=== PATIENT | female | born 1985 | race Caucasian/White ===

== ENCOUNTER → 2016-12-15 | Outpatient (CLI) | payer BC ==
[2014-03-25 08:50] VITALS: BP 153/99
[~2016-12-15] MED LIST: ALPR0.5T PO; DEXT5TAB27 PO; METO10TA81 PO; METR500T8 PO; OMEP20CA5 PO; VALA500T5 PO; ZOLP10TA PO
== END | disposition home or self-care (01) ==
LOC: LAB 11:21
PROVIDERS: ATTEND Emergency Medicine
DX: Z34.90 Encounter for supervision of normal pregnancy, unspecified, unspecified trimester (principal)
CPT/HCPCS: 36415; 84702

== ENCOUNTER → 2016-12-17 | Outpatient (CLI) | payer BC ==
[2014-03-25 08:50] VITALS: BP 153/99
== END | disposition home or self-care (01) ==
LOC: LAB 11:37
PROVIDERS: ATTEND Emergency Medicine
DX: Z32.01 Encounter for pregnancy test, result positive (principal)
CPT/HCPCS: 36415; 84702

== ENCOUNTER 2017-05-22 17:30 | Inpatient (IN) | payer BC ==
[~2017-05-22] VITALS: Ht 157.5 cm; Wt 76.7 kg
[2017-05-22] MEDS ORDERED: IV NORMAL SALINE 1000ML BAG 1,000 ML IV ONE ×4 (17:45→23:15)
[2017-05-22] MEDS ORDERED: ONDANSETRON PF 4 MG/2 ML VIAL. IV ONE (17:45)
[2017-05-22 17:54] LABS: BILIRUBIN,URINE NEGATIVE (NEG); GLUCOSE,URINE NEGATIVE (NEG); NITRITE,URINE NEGATIVE (NEG); PROTEIN,URINE NEGATIVE (NEG-TRACE)
[2017-05-22 17:59] LABS: BASO # 0.1 x10^3/uL (0.0-0.2); BASO % 1 % (0-3); EOS % 1 % (0-3); HEMOGLOBIN 11.8 g/dL (12.0-15.5); LYMPH % 7 % (24-48); MEAN CORPUSCULAR HEMOGLOBIN 31 pg (25-35); MEAN CORPUSCULAR HGB CONC 34 g/dL (31-37); MEAN CORPUSCULAR VOLUME 91 fL (79-100); MONO % 4 % (0-9); NEUT % 88 % (31-73); PLATELET COUNT 231 x10^3/uL (140-400); RED BLOOD COUNT 3.86 x10^6/uL (3.50-5.40); RED CELL DISTRIBUTION WIDTH 12.7 % (11.5-14.5); WHITE BLOOD COUNT 13.1 x10^3/uL (4.0-11.0)
[2017-05-22] MEDS ORDERED: HYDROmorphone 2 MG/ML VIAL IV ONE ×2 (18:00→18:45)
[2017-05-22 18:01] LABS: BACTERIA,URINE MANY /HPF (0-FEW); RBC,URINE 0 /HPF (0-2); SQUAMOUS EPITHELIAL CELL,UR MANY /LPF; WBC,URINE >40 /HPF (0-4)
[2017-05-22 18:13] LABS: CALCIUM 8.8 mg/dL (8.5-10.1); CREATININE 0.5 mg/dL (0.6-1.0); GFR 141.2; POTASSIUM 3.6 mmol/L (3.5-5.1)
[2017-05-22] MEDS ORDERED: FAMOTIDINE 20 MG/2 ML VIAL IVP ONE (18:15)
[2017-05-22 18:20] LABS: ALBUMIN 2.9 g/dL (3.4-5.0); ALBUMIN/GLOBULIN RATIO 0.8 (1.0-1.7); TOTAL BILIRUBIN 0.4 mg/dL (0.2-1.0); TOTAL PROTEIN 6.7 g/dL (6.4-8.2)
[2017-05-22 18:30] LABS: PLT ESTIMATE ADEQUATE (ADEQUATE)
--- NOTE | 2017-05-22 19:01 | RAD ---
Ultrasound pelvis INDICATION: Flank pain. TECHNIQUE: Grayscale, color Doppler and spectral waveform ultrasound images of the pelvis. COMPARISON: None FINDINGS: Single intrauterine noted with cardiac activity at the rate of 144 bpm. The biparietal diameter measures 7.5 cm corresponding to estimated gestation age of 30 weeks 1 day. The head circumference measures 27.57 cm corresponding to estimated gestation age of 30 weeks 1 day. Spine is visualized. Four-chamber heart noted. Stomach is visualized. The abdominal circumference measures 23.76 cm corresponding to estimated gestational age of 28 weeks 0 days. Kidneys visualized. Three-vessel cord noted. Bladder is visualized. Femoral length measures 5.77 cm corresponding to estimated gestation age of 30 weeks 1 day. Placenta is posterior. LUIS ALBERTO within normal limits. Presentation is cephalic the time of scanning. Estimated weight of 1340 g. IMPRESSION: Single viable intrauterine with estimated gestation age of 29 weeks 4 days with estimated due date of 08/03/2017. Electronically signed by: Cresencio Parisi DO (05/22/2017 6:58 PM) [facility]
[2017-05-22] MEDS ORDERED: PROMETHAZINE 12.5 MG in IV DEXTROSE 5% 50 ML IV ONE (19:15)
--- NOTE | 2017-05-22 19:51 | PHYS DOC ---
Past Medical History Past Medical History: Hypertension Past Surgical History: Alcohol Use: None Drug Use: None Adult General Chief Complaint Chief Complaint: FLANK PAIN HPI HPI Patient is a 32 year old female with history of hypertension who presents today with nausea vomiting and diarrhea that began today. Patient is also complaining of moderate bilateral flank pain. She is currently 29 weeks 2 para 1. Denies any vaginal bleeding. Denies any hematemesis or melena. Patient denies any fever. Review of Systems Review of Systems Constitutional: Denies fever or chills [] Eyes: Denies change in visual acuity, redness, or eye pain [] HENT: Denies nasal congestion or sore throat [] Respiratory: Denies cough or shortness of breath [] Cardiovascular: No additional information not addressed in HPI [] GI: Reports nausea, vomiting, and diarrhea. Denies abdominal pain, : Denies dysuria or hematuria [] Musculoskeletal: Denies back pain or joint pain [] Integument: Denies rash or skin lesions [] Neurologic: Denies headache, focal weakness or sensory changes [] All other systems were reviewed and found to be within normal limits, except as documented in this note. Current Medications Current Medications Current Medications Medications (Trade) Dose Ordered Sig/Rashid Start Time Stop Time Status Last Admin Dose Admin Acetaminophen (Tylenol) 1,000 mg 1X ONCE 05/22/17 20:15 05/22/17 20:18 DC 05/22/17 20:24 1,000 MG Ceftriaxone Sodium 50 ml @ 100 mls/hr 1X ONCE 05/22/17 18:45 05/22/17 19:14 DC 05/22/17 18:44 100 MLS/HR Famotidine (Pepcid Vial) 20 mg 1X ONCE 05/22/17 18:15 05/22/17 18:16 DC 05/22/17 18:35 20 MG Hydromorphone HCl (Dilaudid) 1 mg Q3HRS PRN 05/22/17 20:15 05/22/17 20:24 1 MG Ondansetron HCl (Zofran) 4 mg 1X ONCE 05/22/17 17:45 05/22/17 17:46 DC 05/22/17 17:59 4 MG Promethazine HCl 12.5 mg/Dextrose 50.5 ml @ 101 mls/hr 1X ONCE 05/22/17 19:15 05/22/17 19:44 DC 05/22/17 19:21 101 MLS/HR Sodium Chloride 1,000 ml @ 1,000 mls/hr 1X ONCE 05/22/17 19:15 05/22/17 20:14 DC 05/22/17 19:26 1,000 MLS/HR Allergies Allergies Allergies Coded Allergies Type Severity Reaction Last Updated Verified No Known Drug Allergies 03/25/14 No Physical Exam Physical Exam Constitutional: Well developed, well nourished, no acute distress, non-toxic appearance. [] HENT: Normocephalic, atraumatic, bilateral external ears normal, oropharynx moist, no oral exudates, nose normal. [] Eyes: PERRLA, EOMI, conjunctiva normal, no discharge. [] Neck: Normal range of motion, no tenderness, supple, no stridor. [] Cardiovascular:Heart rate regular rhythm, no murmur [] Lungs & Thorax: Bilateral breath sounds clear to auscultation [] Abdomen: Gravid abdomen. Bowel sounds normal, soft, no tenderness, no masses, no pulsatile masses. [] Skin: Warm, dry, no erythema, no rash. [] Back: No tenderness, moderate bilateral CVA tenderness. [] Extremities: No tenderness, no cyanosis, no clubbing, ROM intact, no edema. [] Neurologic: Alert and oriented X 3, normal motor function, normal sensory function, no focal deficits noted. [] Psychologic: Affect normal, judgement normal, mood normal. [] Current Patient Data Vital Signs Vital Signs Date Time Temp Pulse Resp B/P (MAP) Pulse Ox O2 Delivery O2 Flow Rate FiO2 05/22/17 20:48 88 18 112/59 (76) 98 Room Air 05/22/17 17:30 98.1 98.1 Lab Values Laboratory Tests Test 05/22/17 17:30 05/22/17 17:50 Urine Collection Type Unknown Urine Color [place] Urine Clarity Clear Urine pH 6.0 Urine Specific [place] 1.025 Urine Protein Negative mg/dL (NEG-TRACE) Urine Glucose (UA) Negative mg/dL (NEG) Urine Ketones (Stick) Negative mg/dL (NEG) Urine Blood Negative (NEG) Urine Nitrite Negative (NEG) Urine Bilirubin Negative (NEG) Urine Urobilinogen Dipstick 1.0 mg/dL (0.2 mg/dL) Urine Leukocyte Esterase Moderate (NEG) Urine RBC 0 /HPF (0-2) Urine WBC >40 /HPF (0-4) Urine Squamous Epithelial Cells Many /LPF Urine Bacteria Many /HPF (0-FEW) Urine Mucus Marked /LPF White Blood Count 13.1 x10^3/uL (4.0-11.0) H Red Blood Count 3.86 x10^6/uL (3.50-5.40) Hemoglobin 11.8 g/dL (12.0-15.5) L Hematocrit 35.0 % (36.0-47.0) L Mean Corpuscular Volume 91 fL (79-100) Mean Corpuscular Hemoglobin 31 pg (25-35) Mean Corpuscular Hemoglobin Concent 34 g/dL (31-37) Red Cell Distribution Width 12.7 % (11.5-14.5) Platelet Count 231 x10^3/uL (140-400) Neutrophils (%) (Auto) 88 % (31-73) H Lymphocytes (%) (Auto) 7 % (24-48) L Monocytes (%) (Auto) 4 % (0-9) Eosinophils (%) (Auto) 1 % (0-3) Basophils (%) (Auto) 1 % (0-3) Neutrophils # (Auto) 11.5 x10^3uL (1.8-7.7) H Lymphocytes # (Auto) 1.0 x10^3/uL (1.0-4.8) Monocytes # (Auto) 0.5 x10^3/uL (0.0-1.1) Eosinophils # (Auto) 0.1 x10^3/uL (0.0-0.7) Basophils # (Auto) 0.1 x10^3/uL (0.0-0.2) Segmented Neutrophils % 87 % (35-66) H Band Neutrophils % 5 % (0-9) Lymphocytes % 4 % (24-48) L Monocytes % 4 % (0-10) Platelet Estimate Adequate (ADEQUATE) Maternal Serum HCG Beta Subunit 15670 mIU/mL (0-5) H Sodium Level 136 mmol/L (136-145) Potassium Level 3.6 mmol/L (3.5-5.1) Chloride Level 103 mmol/L (98-107) Carbon Dioxide Level 21 mmol/L (21-32) Anion Gap 12 (6-14) Blood Urea Nitrogen 12 mg/dL (7-20) Creatinine 0.5 mg/dL (0.6-1.0) L Estimated GFR (Cockcroft-Gault) 141.2 BUN/Creatinine Ratio 24 (6-20) H Glucose Level 116 mg/dL (70-99) H Calcium Level 8.8 mg/dL (8.5-10.1) Total Bilirubin 0.4 mg/dL (0.2-1.0) Aspartate Amino Transferase (AST) 20 U/L (15-37) Alanine Aminotransferase (ALT) 31 U/L (14-59) Alkaline Phosphatase 117 U/L (46-116) H Total Protein 6.7 g/dL (6.4-8.2) Albumin 2.9 g/dL (3.4-5.0) L Albumin/Globulin Ratio 0.8 (1.0-1.7) L Lipase 95 U/L (73-393) Laboratory Tests 05/22/17 17:50 Laboratory Tests 05/22/17 17:50 EKG EKG [] Radiology/Procedures Radiology/Procedures []PROCEDURE: PREG MORE THAN OR EQ TO 14 WKS Ultrasound pelvis INDICATION: Flank pain. TECHNIQUE: Grayscale, color Doppler and spectral waveform ultrasound images of the pelvis. COMPARISON: None FINDINGS: Single intrauterine noted with cardiac activity at the rate of 144 bpm. The biparietal diameter measures 7.5 cm corresponding to estimated gestation age of 30 weeks 1 day. The head circumference measures 27.57 cm corresponding to estimated gestation age of 30 weeks 1 day. Spine is visualized. Four-chamber heart noted. Stomach is visualized. The abdominal circumference measures 23.76 cm corresponding to estimated gestational age of 28 weeks 0 days. Kidneys visualized. Three-vessel cord noted. Bladder is visualized. Femoral length measures 5.77 cm corresponding to estimated gestation age of 30 weeks 1 day. Placenta is posterior. LUIS ALBERTO within normal limits. Presentation is cephalic the time of scanning. Estimated weight of 1340 g. IMPRESSION: Single viable intrauterine with estimated gestation age of 29 weeks 4 days with estimated due date of 08/03/2017. Electronically signed by: Cresencio Parisi DO (05/22/2017 6:58 PM) [facility] DICTATED and SIGNED BY: CRESENCIO PARISI DO DATE: 05/22/17 1854 CC: DOUG COOPER APRN; ROBERT MIRELES APRN; NON,STAFF ~ Course & Med Decision Making Course & Med Decision Making Pertinent Labs and Imaging studies reviewed. (See chart for details) This is a 29 week female patient presenting to the ED today with nausea vomiting diarrhea bilateral flank pain that began today. Beta hCG 33,373 , CBC with a WBC of 13.1. Urine positive for infection. CMP with no acute findings. OB ultrasound positive for IUP with HR of 144 and gestational age of 28 weeks. Patient was given two liters of IV fluids, zofran and compazine as well as started on Rocephin. She was given Dilaudid for pain with very minimial relief at this point admission was discussed with patient which she agreed. We paged OB Dr. Lowe several times and were unable to get any call backs from him. Consulted with Dr. Noel who accepted patient for admission. Dragon Disclaimer Dragon Disclaimer This electronic medical record was generated, in whole or in part, using a voice recognition dictation system. Departure Departure Impression: Primary Impression: Nausea and vomiting Additional Impressions: Diarrhea Pyelonephritis Disposition: ADMITTED INPATIENT Condition: STABLE Referrals: DOUG COOPER APRN (PCP) Problem Qualifiers Primary Impression: Nausea and vomiting Vomiting type: unspecified Vomiting Intractability: non-intractable Qualified Codes: R11.2 - Nausea with vomiting, unspecified Additional Impressions: Diarrhea Diarrhea type: unspecified type Qualified Codes: R19.7 - Diarrhea, unspecified Weeks of gestation: 29 weeks Qualified Codes: Z3A.29 - 29 weeks gestation of ROBERT MIRELES APRN May 22, 2017 19:51
[2017-05-22] MEDS ORDERED: HYDROmorphone 2 MG/ML VIAL IV PRN (20:15)
[2017-05-22] MEDS ORDERED: ACETAMINOPHEN 500 MG TABLET PO ONE (20:15)
[2017-05-22] MEDS ORDERED: ONDANSETRON PF 4 MG/2 ML VIAL. IV PRN (21:30)
[2017-05-22] MEDS ORDERED: ACETAMINOPHEN 325 MG TABLET. PO PRN (21:30)
[2017-05-22] MEDS ORDERED: PROCHLORPERAZINE 10 MG/2 ML VIAL. IV PRN (21:30)
[2017-05-22 22:15] VITALS: BP 103/57
--- NOTE | 2017-05-22 23:12 | PDOC1 ---
History and Physical Date of Admission Date of Admission DATE: 05/22/17 TIME: 23:12 Identification/Chief Complaint Chief Complaint flank pain Problems: Source Source: Chart review, Patient History of Present Illness History of Present Illness Ms. Gaytan, is a 32 year old female admit with severe pain, flank pain started suddenly 0300, she called her OB when nausea occurred this AM, pain in flank started before dysuria, marked pain in ER, and req. mult doses of pain meds, pain 9.10 she was more calm later on the floor, I saw the patient twice, who presents today with nausea vomiting and diarrhea that began today. She is currently 29 weeks 2 para 1. Denies any vaginal bleeding. Denies any hematemesis or melena. Patient denies any fever. Past Medical History Cardiovascular: No pertinent hx Pulmonary: No pertinent hx GI: No pertinent hx Heme/Onc: No pertinent hx Hepatobiliary: No pertinent hx Psych: Anxiety Infectious disease: No pertinent hx ENT: No pertinent hx Renal/: No pertinent hx Endocrine: No pertinent hx Dermatology: No pertinent hx Grav: 2 Para: 1 Past Surgical History Past Surgical History: No pertinent history Family History Family History: No Significant Social History Smoke: No ALCOHOL: none Drugs: None Current Problem List Problem List Problems Medical Problems: (1) Diarrhea Status: Acute (2) Nausea and vomiting Status: Acute (3) Status: Acute (4) Pyelonephritis Status: Acute Problems: Current Medications Current Medications Current Medications Sodium Chloride 1,000 ml @ 1,000 mls/hr 1X ONCE IV Last administered on 05/22 18:00; Start 05/22/17 at 17:45; Stop 05/22/17 at 18:44; Status DC Ondansetron HCl (Zofran) 4 mg 1X ONCE IV Last administered on 05/22/17 17:59 ; Start 05/22/17 at 17:45; Stop 05/22/17 at 17:46; Status DC Hydromorphone HCl (Dilaudid) 1 mg 1X ONCE IV Last administered on 05/22/17 17:59; Start 05/22/17 at 18:00; Stop 05/22/17 at 18:01; Status DC Famotidine (Pepcid Vial) 20 mg 1X ONCE IVP Last administered on 05/22/17 18: 35; Start 05/22/17 at 18:15; Stop 05/22/17 at 18:16; Status DC Hydromorphone HCl (Dilaudid) 1 mg 1X ONCE IV Last administered on 05/22/17 18:40; Start 05/22/17 at 18:45; Stop 05/22/17 at 18:46; Status DC Ceftriaxone Sodium 50 ml @ 100 mls/hr 1X ONCE IV Last administered on 18:44; Start 05/22/17 at 18:45; Stop 05/22/17 at 19:14; Status DC Sodium Chloride 1,000 ml @ 1,000 mls/hr 1X ONCE IV Last administered on 05/22 19:26; Start 05/22/17 at 19:15; Stop 05/22/17 at 20:14; Status DC Promethazine HCl 12.5 mg/Dextrose 50.5 ml @ 101 mls/hr 1X ONCE IV Last administered on 05/22/17 19:21; Start 05/22/17 at 19:15; Stop 05/22/17 at 19 :44; Status DC Hydromorphone HCl (Dilaudid) 1 mg Q3HRS PRN IV PAIN Last administered on 20:24; Start 05/22/17 at 20:15 Acetaminophen (Tylenol) 1,000 mg 1X ONCE PO Last administered on 05/22/17 20 :24; Start 05/22/17 at 20:15; Stop 05/22/17 at 20:18; Status DC Ondansetron HCl (Zofran) 4 mg PRN Q8HRS PRN IV NAUSEA/VOMITING; Start at 21:30; Stop 05/23/17 at 21:29 Acetaminophen (Tylenol) 650 mg PRN Q4HRS PRN PO FEVER; Start 05/22/17 at 21:30 ; Stop 05/23/17 at 21:29 Sodium Chloride 1,000 ml @ 125 mls/hr 1X ONCE IV Last administered on 23:06; Start 05/22/17 at 21:30; Stop 05/23/17 at 05:29 Prochlorperazine Edisylate (Compazine) 10 mg Q8HRS PRN IV NAUSEA; Start at 21:30 Ceftriaxone Sodium 1 gm/ Dextrose 50 ml @ 100 mls/hr Q24H IV ; Start 05/22/17 at 23:15; Status UNV Oxycodone HCl (Roxicodone) 5 mg PRN Q6HRS PRN PO PAIN; Start 05/22/17 at 23:15 ; Status UNV Active Scripts Active Reported Prilosec (Omeprazole) 20 Mg Capsule.dr 1 Cap PO DAILY Valtrex (Valacyclovir Hcl) 500 Mg Tablet 500 Mg PO BID Reglan (Metoclopramide Hcl) 10 Mg Tablet 10 Mg PO PRN Q4HRS PRN Xanax (Alprazolam) 0.5 Mg Tablet 0.5 Mg PO PRN Q6HRS PRN Ambien (Zolpidem Tartrate) 10 Mg Tablet 10 Mg PO HS PRN Metronidazole 500 Mg Tablet 500 Mg PO TID Adderall 5 Mg Tablet (Dextroamphetamine/Amphetamine) 5 Mg Tablet 30 Mg PO DAILY Allergies Allergies: Coded Allergies: No Known Drug Allergies (Unverified , 03/25/14) ROS General: YES: Chills, Fatigue, No: Night Sweats, Malaise, Appetite, Other PSYCHOLOGICAL ROS: YES: Sleep disturbances, No: Anxiety, Behavioral Disorder, Concentration difficultie, Decreased libido , Depression, Disorientation, Hallucinations, Hostility, Irritablity, Memory difficulties, Mood Swings, Obsessive thoughts, Other Eyes: No Blurry vision, No Decreased vision, No Double vision, No Dry eyes, No Excessive tearing, No Eye Pain, No Itchy Eyes, No Loss of vision, No Photophobia , No Scotomata, No Uses contacts, No Uses glasses, No Other HEENT: No: Heacaches, Visual Changes, Hearing change, Nasal congestion, Nasal discharge, Oral lesions, Sinus pain, Sore Throat, Epistaxis, Sneezing, Snoring, Tinnitus, Vertigo, Vocal changes, Other Respiratory: No: Cough, Hemoptysis, Orthopnea, Pleuritic Pain, Shortness of breath, SOB with excertion, Sputum Changes, Stridor, Tachypnea, Wheezing, Other Cardiovascular: No Chest Pain, No Palpitations, No Orthopnea, No Paroxysmal Noc. Dyspnea, No Edema, No Lt Headedness, No Other Genitourinary: YES Dysuria, YES Frequency, YES Pain, YES Flank Pain, No Incontinence, No Hematuria, No Retention, No Discharge, No Urgency, No Other, No , No , No , No , No , No , No Musculoskeletal: No Gait Disturbance, No Joint Pain, No Joint Stiffness, No Joint Swelling, No Muscle Pain, No Muscular Weakness, No Pain In:, No Swelling In:, No Other Neurological: No Behavorial Changes, No Bowel/Bladder ControlChng, No Confusion , No Dizziness, No Gait Disturbance, No Headaches, No Impaired Coord/balance, No Memory Loss, No Numbness/Tingling, No Seizures, No Speech Problems, No Tremors, No Visual Changes, No Weakness, No Other Skin: No Dry Skin, No Eczema, No Hair Changes, No Lumps, No Mole Changes, No Mottling, No Nail Changes, No Pruritus, No Rash, No Skin Lesion Changes, No Other, No Acne Physical Exam General: Alert, Oriented X3, Cooperative, mild distress (pain) HEENT: Atraumatic, PERRLA, EOMI, Mucous membr. moist/pink Lungs: Clear to auscultation, Normal air movement Heart: no gallops Abdomen: Normal bowel sounds Rectal Exam: not examined Extremities: No clubbing, No edema Skin: No significant lesion Neuro: Normal speech, Sensation intact, Cranial nerves 3-12 NL Psych/Mental Status: Mood NL Vitals Vitals Vital Signs Date Time Temp Pulse Resp B/P (MAP) Pulse Ox O2 Delivery O2 Flow Rate FiO2 05/22/17 21:18 95 16 121/65 (83) 97 Room Air 05/22/17 17:30 98.1 98.1 Labs Labs Laboratory Tests Test 05/22/17 17:30 05/22/17 17:50 Urine Collection Type Unknown Urine Color [place] Urine Clarity Clear Urine pH 6.0 Urine Specific [place] 1.025 Urine Protein Negative mg/dL (NEG-TRACE) Urine Glucose (UA) Negative mg/dL (NEG) Urine Ketones (Stick) Negative mg/dL (NEG) Urine Blood Negative (NEG) Urine Nitrite Negative (NEG) Urine Bilirubin Negative (NEG) Urine Urobilinogen Dipstick 1.0 mg/dL (0.2 mg/dL) Urine Leukocyte Esterase Moderate (NEG) Urine RBC 0 /HPF (0-2) Urine WBC >40 /HPF (0-4) Urine Squamous Epithelial Cells Many /LPF Urine Bacteria Many /HPF (0-FEW) Urine Mucus Marked /LPF White Blood Count 13.1 x10^3/uL (4.0-11.0) Red Blood Count 3.86 x10^6/uL (3.50-5.40) Hemoglobin 11.8 g/dL (12.0-15.5) Hematocrit 35.0 % (36.0-47.0) Mean Corpuscular Volume 91 fL (79-100) Mean Corpuscular Hemoglobin 31 pg (25-35) Mean Corpuscular Hemoglobin Concent 34 g/dL (31-37) Red Cell Distribution Width 12.7 % (11.5-14.5) Platelet Count 231 x10^3/uL (140-400) Neutrophils (%) (Auto) 88 % (31-73) Lymphocytes (%) (Auto) 7 % (24-48) Monocytes (%) (Auto) 4 % (0-9) Eosinophils (%) (Auto) 1 % (0-3) Basophils (%) (Auto) 1 % (0-3) Neutrophils # (Auto) 11.5 x10^3uL (1.8-7.7) Lymphocytes # (Auto) 1.0 x10^3/uL (1.0-4.8) Monocytes # (Auto) 0.5 x10^3/uL (0.0-1.1) Eosinophils # (Auto) 0.1 x10^3/uL (0.0-0.7) Basophils # (Auto) 0.1 x10^3/uL (0.0-0.2) Segmented Neutrophils % 87 % (35-66) Band Neutrophils % 5 % (0-9) Lymphocytes % 4 % (24-48) Monocytes % 4 % (0-10) Platelet Estimate Adequate (ADEQUATE) Maternal Serum HCG Beta Subunit 41076 mIU/mL (0-5) Sodium Level 136 mmol/L (136-145) Potassium Level 3.6 mmol/L (3.5-5.1) Chloride Level 103 mmol/L (98-107) Carbon Dioxide Level 21 mmol/L (21-32) Anion Gap 12 (6-14) Blood Urea Nitrogen 12 mg/dL (7-20) Creatinine 0.5 mg/dL (0.6-1.0) Estimated GFR (Cockcroft-Gault) 141.2 BUN/Creatinine Ratio 24 (6-20) Glucose Level 116 mg/dL (70-99) Calcium Level 8.8 mg/dL (8.5-10.1) Total Bilirubin 0.4 mg/dL (0.2-1.0) Aspartate Amino Transf (AST/SGOT) 20 U/L (15-37) Alanine Aminotransferase (ALT/SGPT) 31 U/L (14-59) Alkaline Phosphatase 117 U/L (46-116) Total Protein 6.7 g/dL (6.4-8.2) Albumin 2.9 g/dL (3.4-5.0) Albumin/Globulin Ratio 0.8 (1.0-1.7) Lipase 95 U/L (73-393) Laboratory Tests Test 05/22/17 17:30 05/22/17 17:50 Urine Collection Type Unknown Urine Color [place] Urine Clarity Clear Urine pH 6.0 Urine Specific [place] 1.025 Urine Protein Negative mg/dL (NEG-TRACE) Urine Glucose (UA) Negative mg/dL (NEG) Urine Ketones (Stick) Negative mg/dL (NEG) Urine Blood Negative (NEG) Urine Nitrite Negative (NEG) Urine Bilirubin Negative (NEG) Urine Urobilinogen Dipstick 1.0 mg/dL (0.2 mg/dL) Urine Leukocyte Esterase Moderate (NEG) Urine RBC 0 /HPF (0-2) Urine WBC >40 /HPF (0-4) Urine Squamous Epithelial Cells Many /LPF Urine Bacteria Many /HPF (0-FEW) Urine Mucus Marked /LPF White Blood Count 13.1 x10^3/uL (4.0-11.0) Red Blood Count 3.86 x10^6/uL (3.50-5.40) Hemoglobin 11.8 g/dL (12.0-15.5) Hematocrit 35.0 % (36.0-47.0) Mean Corpuscular Volume 91 fL (79-100) Mean Corpuscular Hemoglobin 31 pg (25-35) Mean Corpuscular Hemoglobin Concent 34 g/dL (31-37) Red Cell Distribution Width 12.7 % (11.5-14.5) Platelet Count 231 x10^3/uL (140-400) Neutrophils (%) (Auto) 88 % (31-73) Lymphocytes (%) (Auto) 7 % (24-48) Monocytes (%) (Auto) 4 % (0-9) Eosinophils (%) (Auto) 1 % (0-3) Basophils (%) (Auto) 1 % (0-3) Neutrophils # (Auto) 11.5 x10^3uL (1.8-7.7) Lymphocytes # (Auto) 1.0 x10^3/uL (1.0-4.8) Monocytes # (Auto) 0.5 x10^3/uL (0.0-1.1) Eosinophils # (Auto) 0.1 x10^3/uL (0.0-0.7) Basophils # (Auto) 0.1 x10^3/uL (0.0-0.2) Segmented Neutrophils % 87 % (35-66) Band Neutrophils % 5 % (0-9) Lymphocytes % 4 % (24-48) Monocytes % 4 % (0-10) Platelet Estimate Adequate (ADEQUATE) Maternal Serum HCG Beta Subunit 89391 mIU/mL (0-5) Sodium Level 136 mmol/L (136-145) Potassium Level 3.6 mmol/L (3.5-5.1) Chloride Level 103 mmol/L (98-107) Carbon Dioxide Level 21 mmol/L (21-32) Anion Gap 12 (6-14) Blood Urea Nitrogen 12 mg/dL (7-20) Creatinine 0.5 mg/dL (0.6-1.0) Estimated GFR (Cockcroft-Gault) 141.2 BUN/Creatinine Ratio 24 (6-20) Glucose Level 116 mg/dL (70-99) Calcium Level 8.8 mg/dL (8.5-10.1) Total Bilirubin 0.4 mg/dL (0.2-1.0) Aspartate Amino Transf (AST/SGOT) 20 U/L (15-37) Alanine Aminotransferase (ALT/SGPT) 31 U/L (14-59) Alkaline Phosphatase 117 U/L (46-116) Total Protein 6.7 g/dL (6.4-8.2) Albumin 2.9 g/dL (3.4-5.0) Albumin/Globulin Ratio 0.8 (1.0-1.7) Lipase 95 U/L (73-393) VTE Prophylaxis Ordered VTE Prophylaxis Devices: No VTE Pharmacological Prophylaxi: Yes Assessment/Plan Assessment/Plan UTi sepsis pyelonephritis, 29 wks nausea, aggressive IV fluids, rocephin, nausea meds, caution with pain meds, discussed OB consult low serum albumin, normal physiology of admit to CARLOS Melchor MD May 22, 2017 23:12
[2017-05-22] MEDS ORDERED: oxyCODONE IR 5 MG TABLET PO PRN (23:15)
[2017-05-22] MEDS ORDERED: POTASSIUM CHLORIDE 20 MEQ TABLET.ER. PO ONE (23:30)
[2017-05-23] MEDS ORDERED: ZOLPIDEM 5 MG TABLET. PO PRN (00:45)
[2017-05-23 02:00] VITALS: BP 92/54
[2017-05-23 04:41] LABS: BASO % 0 % (0-3); EOS % 1 % (0-3); HEMATOCRIT 29.6 % (36.0-47.0); HEMOGLOBIN 10.2 g/dL (12.0-15.5); LYMPH # 1.4 x10^3/uL (1.0-4.8); LYMPH % 19 % (24-48); MEAN CORPUSCULAR HEMOGLOBIN 32 pg (25-35); MEAN CORPUSCULAR HGB CONC 35 g/dL (31-37); MEAN CORPUSCULAR VOLUME 92 fL (79-100); MONO % 7 % (0-9); NEUT % 73 % (31-73); PLATELET COUNT 189 x10^3/uL (140-400); RED BLOOD COUNT 3.23 x10^6/uL (3.50-5.40); RED CELL DISTRIBUTION WIDTH 12.7 % (11.5-14.5); WHITE BLOOD COUNT 7.8 x10^3/uL (4.0-11.0)
[2017-05-23 05:22] VITALS: BP 103/55
[2017-05-23 05:42] LABS: CALCIUM 8.2 mg/dL (8.5-10.1); CREATININE 0.4 mg/dL (0.6-1.0); GFR 182.7; POTASSIUM 3.2 mmol/L (3.5-5.1)
[2017-05-23] MEDS ORDERED: MAGNESIUM SULFATE 2GM 50 ML IV ONE (08:00)
[2017-05-23] MEDS ORDERED: POTASSIUM CHLORIDE 20 MEQ TABLET.ER. PO ONE (08:00)
[2017-05-23] MEDS ORDERED: PRENATAL MULTIVITAMIN TABLET. PO SCH (09:00)
[2017-05-23 12:00] VITALS: BP 105/57
--- NOTE | 2017-05-23 13:37 | PDOC3 ---
Discharge Summary [facility] Date of Admission: May 22, 2017 Discharge Date: May 23, 2017 Admitting Diagnosis UTi sepsis pyelonephritis, 29 wks low serum albumin, normal physiology of Problems: Final Diagnosis Brief Hospital Course Ms. Gaytan is a 32 old F, coming for abd pain, dysuria, N/V. UA looks dirty,no good sample tho. pt feels better today, got ceftriaxone x2, OB dced pt with po abx and will fu with ob nurse next Friday for final sensitive. dc time 35min General: Alert, Oriented X3, Cooperative, mild distress (pain) HEENT: Atraumatic, PERRLA, EOMI, Mucous membr. moist/pink Lungs: Clear to auscultation, Normal air movement Heart: no gallops Abdomen: Normal bowel sounds Rectal Exam: not examined Extremities: No clubbing, No edema Skin: No significant lesion Neuro: Normal speech, Sensation intact, Cranial nerves 3-12 NL Psych/Mental Status: Mood NL Problems: Disposition home CONDITION AT DISCHARGE: Improved Diet regular Scheduled Dextroamphetamine/Amphetamine (Adderall 5 Mg Tablet), 30 MG PO DAILY, (Reported) Metronidazole (Metronidazole), 500 MG PO TID, (Reported) Omeprazole (Prilosec), 1 CAP PO DAILY, (Reported) Valacyclovir Hcl (Valtrex), 500 MG PO BID, (Reported) Scheduled PRN Alprazolam (Xanax), 0.5 MG PO PRN Q6HRS PRN for ANXIETY / AGITATION, (Reported) Metoclopramide Hcl (Reglan), 10 MG PO PRN Q4HRS PRN for PAIN, (Reported) Zolpidem Tartrate (Ambien), 10 MG PO HS PRN for INSOMNIA, (Reported) Follow Up pcp in 2ws HANS LOMBARDI MD May 23, 2017 13:37
[2017-05-23] MEDS ORDERED: cefTRIAXone IV Push 1 GM VIAL. IVP SCH (19:00)
--- NOTE | 2017-05-23 20:48 | CONS ---
DATE OF CONSULTATION: OB CONSULTATION ADMITTING PHYSICIAN: Annette Noel MD REASON FOR ADMISSION: Viral syndrome, flank tenderness, . HISTORY OF PRESENT ILLNESS: This is a 32-year-old white female 2, para 1-0-0-1 with an estimated gestational age of 28 and 6/7 weeks' gestation with EDC of 08/08/2017. The patient is receiving her care with the nurse paste maker. She states it has been unremarkable to date. She denies any vaginal bleeding. Reports good movement. The patient had presented to the ED last evening secondary to symptoms of nausea, vomiting and diarrhea. She had called her primary OB provider who prescribed Zofran; however, did not work for her. She was having an achy, sharp type flank pain that radiated towards the front of the abdomen. She denied any significant change in her vaginal discharge. Denies any vaginal bleeding. Had a generalized aching sensation all the way down to her patellar regions. Denies any significant dysuria or hematuria. Had one episode where she felt some burning when she voided. She had tried Tylenol, Benadryl, the aforementioned Zofran, hot baths and massage; however, symptoms did not elmer. She graded her pain as 8/10 on a 10-point scale. She denies any fevers or chills. Her workup in the ED consistent of a CBC: White count was 13.1, hematocrit of 35, hemoglobin 11.8, platelet count 231. Urinalysis was performed. Cultures are pending at time of dictation. On microscopic exam, she had greater than 40 wbc's, but many squamous cells noted as well. As noted, urine culture is pending. She was started on Rocephin. She is also noted to have a decrease in her magnesium and potassium level. Both of these are being replaced by the admitting physician. PAST OBSTETRICAL HISTORY: On 05/24/2016, she underwent a delivery at term after a failed induction secondary to arrest of cervical dilatation. This was a female infant. She delivered at [facility]. PAST MEDICAL HISTORY: She was diagnosed with hypertension after delivery of her child. Her last child is not requiring any antihypertensive therapy. History of urinary tract infections. PAST SURGICAL HISTORY: section on 05/24/2016. 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 She is . Denies tobacco use. Denies any alcohol use during the course of her . FAMILY HISTORY: She nor her partner denied any known family history of defects on her side of the family or the father of the baby's side of the family. ALLERGIES: No known drug allergies. MEDICATIONS: vitamins. LABORATORY AND RADIOGRAPHIC STUDIES: Repeat CBC this morning shows a white count of 7.8, platelet count of 181, hemoglobin of 10.2 and hematocrit of 29.6. OB ultrasound, heart rate of 144. Placenta is posterior. LUIS ALBERTO within normal limits. Cephalic presentation. Estimated weight 1340 grams, correlating with an estimated gestational age of 29 and 4/7 weeks. heart tracing 130 baseline, category 1 tracing. Tocometer demonstrates no uterine contractions. PHYSICAL EXAMINATION: VITAL SIGNS: Her T-max is 98.4, T-current is 98.1, pulse rate of 83, blood pressure is all within normal limits, currently 103/55, O2 sats 96+% on room air. GENERAL: The patient is alert and oriented, in no acute distress. She is ambulating in the room. NECK: Supple. LUNGS: Clear without wheeze, rhonchi or crackles, not appreciated any CVA tenderness to palpation bilaterally. ABDOMEN: Soft, gravid, nontender. heart tracing category 1 as described above. PELVIC: Not indicated. EXTREMITIES: Nontender. SKIN: Dry, remarkable for tattoo. IMPRESSION: Intrauterine at 29 weeks' gestation, viral syndrome versus urinary tract infection versus pyelonephritis. RECOMMENDATIONS: The patient has a normal white count, is afebrile and her physical exam is benign this morning. She does verbalize desire to be discharged home. She has arrangements for close followup as she is well established with her primary OB. I have recommended to the patient, she follow up with her primary obstetrical provider on Friday, and request that they follow up on the results of the urine culture with the results pending at the time of dictation. She will receive 2-3 doses of Rocephin prior to dismissal. I have taken the liberty to give her a script for Macrobid 100 mg #14 one p.o. b.i.d., which she can take at home. Her anemia is likely related to IV fluids, delusional in nature as well as delusional factors associated with . vitamins with this level of anemia should be adequate for her and we will not make any changes in this regards other than to encourage her to take her vitamins. She is given routine antepartum precautions to monitor for movement, uterine contractions, etc. Encouraged the patient to push fluids, use Tylenol, Benadryl over the counter p.r.n. for analgesic needs. Should the patient feel the need for something stronger, Tylenol with codeine would be adequate and would limit the number of tablets prescribed knowing that she will have followup on Friday with her primary consulting manager. Thank you very much for allowing me to participate in your patient's care. Feel free to contact me should you have any questions or concerns. Should the urine culture demonstrate growth prior to her dismissal, we could always modify the antibiotic regimen. JIM KNUTSON DO DR: SALMA/nils JOB#: [id number] / [id number]
== END 2017-05-23 12:35 | disposition home or self-care (01) | DRG 781 ==
LOC: ER 17:30 → 3 SO LND 21:04
PROVIDERS: ADMIT Internal Medicine; ATTEND Internal Medicine
DX: O98.813 Other maternal infectious and parasitic diseases complicating pregnancy, third trimester (principal); A41.9 Sepsis, unspecified organism; N12 Tubulo-interstitial nephritis, not specified as acute or chronic; O23.03 Infections of kidney in pregnancy, third trimester; O10.913 Unspecified pre-existing hypertension complicating pregnancy, third trimester; O99.343 Other mental disorders complicating pregnancy, third trimester; O34.219 Maternal care for unspecified type scar from previous cesarean delivery; F41.9 Anxiety disorder, unspecified; O98.513 Other viral diseases complicating pregnancy, third trimester; B34.9 Viral infection, unspecified; Z3A.29 29 weeks gestation of pregnancy; Z87.440 Personal history of urinary (tract) infections
CPT/HCPCS: 36415; 76805; 80048; 80053; 81001; 83690; 83735; 84702; 85007; 85025; 87086; 96365; 96368; 96375; 96376; J0690; J0696; J1170; J2405; J2550; J7030; J7060; S0028; 99285-25

== ENCOUNTER → 2018-06-05 | Outpatient (CLI) | payer BC ==
[~2018-06-05] MED LIST changes: +METR-84 PO; -METR500T8 PO
[2018-06-05 09:44] LABS: BASO # 0.1 x10^3/uL (0.0-0.2); BASO % 1 % (0-3); EOS # 0.2 x10^3/uL (0.0-0.7); EOS % 1 % (0-3); HEMATOCRIT 42.2 % (36.0-47.0); HEMOGLOBIN 14.6 g/dL (12.0-15.5); LYMPH # 2.7 x10^3/uL (1.0-4.8); LYMPH % 20 % (24-48); MEAN CORPUSCULAR HEMOGLOBIN 32 pg (25-35); MEAN CORPUSCULAR HGB CONC 35 g/dL (31-37); MEAN CORPUSCULAR VOLUME 93 fL (79-100); MONO # 0.6 x10^3/uL (0.0-1.1); MONO % 4 % (0-9); NEUT # 9.6 x10^3uL (1.8-7.7); NEUT % 74 % (31-73); PLATELET COUNT 272 x10^3/uL (140-400); RED BLOOD COUNT 4.55 x10^6/uL (3.50-5.40); RED CELL DISTRIBUTION WIDTH 12.7 % (11.5-14.5); WHITE BLOOD COUNT 13.1 x10^3/uL (4.0-11.0)
[2018-06-05 10:13] LABS: ALBUMIN 4.1 g/dL (3.4-5.0); ALBUMIN/GLOBULIN RATIO 1.1 (1.0-1.7); CALCIUM 9.5 mg/dL (8.5-10.1); CREATININE 0.9 mg/dL (0.6-1.0); GFR 71.3; TOTAL BILIRUBIN 0.4 mg/dL (0.2-1.0); TOTAL PROTEIN 7.9 g/dL (6.4-8.2)
[2018-06-05 10:14] LABS: CHOLESTEROL/HDL RATIO 4.5
== END | disposition home or self-care (01) ==
LOC: LAB 09:15
PROVIDERS: ATTEND Neuromusculoskeletal Medicine & OMM
DX: E78.5 Hyperlipidemia, unspecified (principal); I10 Essential (primary) hypertension; R63.5 Abnormal weight gain
CPT/HCPCS: 36415; 80053; 80061; 84443; 85025